=== PATIENT | female | born 1995 | race Caucasian/White ===

== ENCOUNTER 2020-07-18 11:47 | Emergency (ER) | payer SELFPAY ==
[~2020-07-18] VITALS: Ht 175.3 cm; Wt 121.6 kg
[2020-07-18 11:51] VITALS: BP 123/79; Ht 175.3 cm; Wt 121.6 kg
== END 2020-07-18 12:39 | disposition home or self-care (01) ==
LOC: ED 11:47
DX: R05 Cough (principal); R51.9 Headache, unspecified; Z20.828 Contact with and (suspected) exposure to other viral communicable diseases
CPT/HCPCS: U0003-CS

== ENCOUNTER 2020-07-23 16:51 | Emergency (ER) | payer MEDICAID ==
[~2020-07-23] VITALS: Ht 175.3 cm; Wt 114.3 kg
[2020-07-23 16:57] VITALS: Ht 175.3 cm; Wt 114.3 kg
[2020-07-23 17:16] VITALS: BP 119/92
== END 2020-07-23 17:16 | disposition home or self-care (01) ==
LOC: ED 16:51
DX: H66.93 Otitis media, unspecified, bilateral (principal); L29.9 Pruritus, unspecified; J45.909 Unspecified asthma, uncomplicated